=== PATIENT | female | born 1955 | race Caucasian/White ===

== ENCOUNTER → 2016-11-04 | Outpatient (CLI) | payer OTHER | LOC: RAD 15:13 | PROVIDERS: ATTEND Surgery | DX: L97.322 Non-pressure chronic ulcer of left ankle with fat layer exposed (principal) ==

== ENCOUNTER → 2017-03-15 | Outpatient (CLI) | payer OTHER ==
--- NOTE | 2017-03-16 07:41 | XCELERA REPORT ---
[address] [address] Lower Extremity Arterial Evaluation Name: SASHA JONES Age: 61 yrs Gender: Female : 1955 Patient Status: Outpatient Patient Location: Study Date: 03/15/2017 09:46 AM Procedure: A color flow and duplex scan of the lower extremity arteries was performed bilaterally with velocity and waveform anaylsis. Reason For Study: ULCER Ordering Physician: JUHI JIMENEZ Performed By: Zoila Casas Measurements and Calculations Right Left CAR WHACKER PSV 108.6 87.3 cm/sec Prox PFA PSV 65.9 -48.5 cm/sec Prox SFA PSV 100.2 86.4 cm/sec Mid SFA PSV -108.1 -99.7 cm/sec Dist SFA PSV -104.8 -69.5 cm/sec Prox Pop A PSV 56.6 48.8 cm/sec Dist RONY PSV 51.0 49.8 cm/sec Dist LINK TRAINER OPERATOR PSV 87.7 74.6 cm/sec Darshan Pedis PSV 24.9 54.6 cm/sec Right Side Arterial Evaluation Normal velocity and biphasic waveforms noted from the Common Femoral artery to the infrageniculate vessels. Somewhat diminished velocity in the Dorsalis Pedis. 0-19% stenosis at the Aorta Iliac inflow. Ankle Brachial index is 1.1. Left Side Arterial Evaluation Normal velocity and biphasic waveforms noted from the Common Femoral artery to the infrageniculate vessels. 0-19% stenosis at the Aorta Iliac inflow. Ankle Brachial index is 0.9. Interpretation Summary Mild hemodynamically significant lesions in the bilateral lower extremities, on duplex imaging, at rest. : JUHI JIMENEZ > Juhi Jimenez
--- NOTE | 2017-03-16 12:42 | XCELERA REPORT ---
[address] [address] Lower Extremity Venous Evaluation Name: SASHA JONES Age: 61 yrs Gender: Female : 1955 Patient Status: Outpatient Patient Location: Study Date: 03/15/2017 10:12 AM Reason For Study: ULCER Ordering Physician: JUHI JIMENEZ Performed By: Zoila Casas Right Sided Venous Evaluation Deep venous system evaluation shows patent veins with no obstruction or significant reflux identified. Sapheno Femoral junction: no reflux. Femoral vein reflux: no reflux. Greater Saphenous vein, Proximal thigh: reflux: no reflux. Greater Saphenous vein, Distal thigh: reflux: no reflux. Greater Saphenous vein, Proximal below knee: reflux: no reflux. Small Saphenous vein, : reflux: 3 second reflux. 5 mm. No significant Perforators identified. Left Sided Venous Evaluation Deep venous system evaluation shows patent veins with significant reflux identified. 1.3 second reflux in the Popliteal vein, 2.5 seconds reflux in the Femoral vein. There is mural scarring, non occlusive in the Femoral and Popliteal area, significant for old or prior DVT. Sapheno Femoral junction: no reflux. Greater Saphenous vein, Proximal thigh: reflux: no reflux. Greater Saphenous vein, mid thigh: reflux:no reflux. Greater Saphenous vein, Distal thigh: reflux:no reflux. Greater Saphenous vein, Proximal below knee: reflux: none Greater Saphenous vein, Mid below knee: reflux: none. Greater Saphenous vein, Distal below knee: reflux: no reflux. Small Saphenous vein reflux: 3 seconds, 5.7 mm mm diameter. No significant Perforators identified. Interpretation Summary No acute DVT. There is old mural scarring in the left Femoral vein with deep reflux. Bilateral Small Saphenous reflux, as noted. : JUHI JIMENEZ > Juhi Jimenez
== END ==
LOC: SP 09:36
PROVIDERS: ATTEND Surgery
DX: L97.322 Non-pressure chronic ulcer of left ankle with fat layer exposed (principal)
CPT/HCPCS: 93925; 93970

== ENCOUNTER → 2017-08-04 | Outpatient (CLI) | payer OTHER ==
--- NOTE | 2017-08-04 12:04 | RADIOLOGY REPORT (SQ) ---
EXAM DESCRIPTION: VENOUS UNILATERAL LOWER COMPLETED DATE/TIME: 08/04/2017 11:34 am REASON FOR STUDY: LLE PAIN M79.606 PAIN IN LEG, UNSPECIFIED COMPARISON: None. TECHNIQUE: Dynamic and static dutton scale and color images acquired of the left leg venous system. Se lected spectral images acquired with additional compression and augmentation maneuvers. The contralat eral common femoral vein and saphenofemoral junction were also imaged. Images stored on PACS. LIMITATIONS: None. FINDINGS: There is chronic nonocclusive thrombus in common femoral vein through the distal superfici al femoral vein. No acute thrombus is seen. The veins in the calf are unremarkable. There is no [place] perficial venous thrombosis. IMPRESSION: Chronic nonocclusive DVT from the common femoral through the distal superficial femoral vein on the left. TECHNICAL DOCUMENTATION: JOB ID: [id number] [employer]- All Rights Reserved
== END ==
LOC: SP 10:33
PROVIDERS: ATTEND Surgery
DX: M79.606 Pain in leg, unspecified (principal)
CPT/HCPCS: 93971

== ENCOUNTER → 2019-01-03 | Outpatient (CLI) | payer MEDICARE, OTHER ==
[2019-01-03 14:08] LABS: ABSOLUTE BASOPHILS # (AUTO) 0.1 10^3/uL (0.0-0.2); ABSOLUTE EOSINOPHILS # (AUTO) 0.2 10^3/uL (0.0-0.6); ABSOLUTE LYMPHOCYTES (AUTO) 2.3 10^3/uL (0.5-4.7); ABSOLUTE MONOCYTES (AUTO) 0.6 10^3/uL (0.1-1.4); ABSOLUTE NEUT (AUTO) 6.1 10^3/uL (1.7-8.2); BASOPHILS % (AUTO) 0.7 % (0-2); EOSINOPHILS % (AUTO) 1.6 % (0-6); HEMATOCRIT 36.7 % (36.0-47.0); HEMOGLOBIN 12.5 g/dL (12.0-15.5); LYMPHOCYTES % (AUTO) 25.4 % (13-45); MEAN CORPUSCULAR HEMOGLOBIN 29.2 pg (27.0-33.4); MEAN CORPUSCULAR HGB CONC 34.2 g/dL (32.0-36.0); MEAN CORPUSCULAR VOLUME 86 fl (80-97); PLATELET COUNT 318 10^3/uL (150-450); RED BLOOD COUNT 4.29 10^6/uL (3.72-5.28); RED CELL DISTRIBUTION WIDTH 14.1 % (11.5-14.0); SEGMENTED NEUTROPHILS % (AUTO) 66.3 % (42-78); TOTAL CELLS COUNTED % (AUTO) 100 %; WHITE BLOOD COUNT 9.2 10^3/uL (4.0-10.5)
[2019-01-03 14:24] LABS: ALANINE AMINOTRANSFERASE 19 U/L (9-52); ALBUMIN 4.5 g/dL (3.5-5.0); ALKALINE PHOSPHATASE 88 U/L (38-126); ANION GAP 9 (5-19); ASPARTATE AMINO TRANSFERASE 15 U/L (14-36); BILIRUBIN,DIRECT 0.3 mg/dL (0.0-0.4); BILIRUBIN,TOTAL 0.7 mg/dL (0.2-1.3); BLOOD UREA NITROGEN 9 mg/dL (7-20); C-REACTIVE PROTEIN 11.5 mg/L (<10.0); CALCIUM 10.1 mg/dL (8.4-10.2); CARBON DIOXIDE 26 mmol/L (22-30); CHLORIDE 105 mmol/L (98-107); GLUCOSE 133 mg/dL (75-110); SODIUM 140.3 mmol/L (137-145); TOTAL PROTEIN 7.1 g/dL (6.3-8.2)
[2019-01-03 14:35] LABS: ERYTHROCYTE SEDIMENTATION RATE 25 mm/hr (0-30)
--- NOTE | 2019-01-03 15:52 | RADIOLOGY REPORT (SQ) ---
EXAM DESCRIPTION: ANKLE LEFT COMPLETE COMPLETED DATE/TIME: 01/03/2019 2:11 pm REASON FOR STUDY: NON PRESSURE CHRONIC ULCER OF LT ANKLE W/FAT LAYER EXPOSED (L97.322) COMPARISON: 2016. NUMBER OF VIEWS: Three views left ankle. LIMITATIONS: None. FINDINGS: Osteopenic. No fracture or bone lesion. Chronic calcaneal bone spur. OTHER: No other significant finding. IMPRESSION: No acute or suspicious radiographic abnormality. Findings as above. TECHNICAL DOCUMENTATION: JOB ID: [id number] Reading location - IP/workstation name: [email or web address]
--- NOTE | 2019-01-04 09:32 | XCELERA REPORT ---
[address] [address] Lower Extremity Arterial Evaluation Name: ROBERT SASHA Jaspal Age: 63 yrs Gender: Female : 1955 Patient Status: Outpatient Patient Location: Study Date: 01/03/2019 02:31 PM Procedure: A color flow and duplex scan of the lower extremity arteries was performed bilaterally with velocity and waveform anaylsis. Reason For Study: ULCER Ordering Physician: JUHI JIMENEZ Performed By: Belle Monroy Measurements and Calculations Right Left PROFESSOR OF ASTRONOMY PSV 132.8 69.5 cm/sec Prox PFA PSV -83.3 -40.7 cm/sec Prox SFA PSV -107.5 85.1 cm/sec Mid SFA PSV -115.9 76.8 cm/sec Dist SFA PSV -134.1 -103.1cm/sec Dist Pop A PSV 69.4 51.9 cm/sec Dist RONY PSV 70.2 47.8 cm/sec Dist STREET LIGHT CLEANER PSV 129.5 65.4 cm/sec Darshan Pedis PSV 57.3 -38.7 cm/sec Right Side Arterial Evaluation Normal velocity and triphasic waveforms noted from the Common Femoral artery to the Posterior Tibial . Biphasic with normal velocity, mild spectral broadening, in the Anterior Tibial and Dorsalis Pedis arteries. Ankle Brachial index 1.21. Left Side Arterial Evaluation Normal velocity and triphasic waveforms noted from the Common Femoral artery to the Anterior Tibial . Biphasic with low normal velocity in the Deep Femoral , Posterior Tibial and Dorsalis Pedis arteries. Ankle Brachial index 0.98. Interpretation Summary Mild hemodynamically significant lesions in the bilateral lower extremities, on duplex imaging, at rest. Isolated atherosclerotic effects, bilaterally. OTONIEL's are in normal range suggesting, minimal if any significant arterial disease. : JUHI JIMENEZ > Juhi Jimenez
== END ==
LOC: SP 13:22
PROVIDERS: ATTEND Surgery
DX: E11.621 Type 2 diabetes mellitus with foot ulcer (principal); L97.322 Non-pressure chronic ulcer of left ankle with fat layer exposed
CPT/HCPCS: 36415; 80053; 83036; 85025; 85652; 86140; 93925

== ENCOUNTER → 2019-12-12 | Outpatient (CLI) | payer MEDICARE, OTHER ==
[2019-12-12 14:51] LABS: ABSOLUTE BASOPHILS # (AUTO) 0.1 10^3/uL (0.0-0.2); ABSOLUTE EOSINOPHILS # (AUTO) 0.1 10^3/uL (0.0-0.6); ABSOLUTE LYMPHOCYTES (AUTO) 1.9 10^3/uL (0.5-4.7); ABSOLUTE MONOCYTES (AUTO) 0.4 10^3/uL (0.1-1.4); ABSOLUTE NEUT (AUTO) 6.2 10^3/uL (1.7-8.2); BASOPHILS % (AUTO) 0.9 % (0-2); HEMATOCRIT 37.7 % (36.0-47.0); HEMOGLOBIN 12.9 g/dL (12.0-15.5); LYMPHOCYTES % (AUTO) 22.2 % (13-45); MEAN CORPUSCULAR HEMOGLOBIN 30.3 pg (27.0-33.4); MEAN CORPUSCULAR HGB CONC 34.2 g/dL (32.0-36.0); MEAN CORPUSCULAR VOLUME 89 fl (80-97); MONOCYTES % (AUTO) 5.1 % (3-13); PLATELET COUNT 299 10^3/uL (150-450); RED BLOOD COUNT 4.24 10^6/uL (3.72-5.28); RED CELL DISTRIBUTION WIDTH 13.6 % (11.5-14.0); SEGMENTED NEUTROPHILS % (AUTO) 70.8 % (42-78); TOTAL CELLS COUNTED % (AUTO) 100 %; WHITE BLOOD COUNT 8.8 10^3/uL (4.0-10.5)
--- NOTE | 2019-12-12 15:12 | RADIOLOGY REPORT (SQ) ---
EXAM DESCRIPTION: ANKLE LEFT COMPLETE COMPLETED DATE/TIME: 12/12/2019 2:38 pm REASON FOR STUDY: NON-PRESSURE CHRONIC ULCER OF LEFT ANKLE W FAT LAYER EXPOSED (L97.322) L97.322 NO N-PRESSURE CHRONIC ULCER OF LEFT ANKLE W FAT LAYER E11.621 TYPE 2 DIABETES MELLITUS WITH FOOT ULCER COMPARISON: None. NUMBER OF VIEWS: Three views. TECHNIQUE: AP, lateral, and oblique radiographic images acquired of the left ankle. LIMITATIONS: None. FINDINGS: MINERALIZATION: Normal. BONES: No acute fracture or dislocation. No worrisome bone lesions. JOINTS: No effusions. SOFT TISSUES: No soft tissue swelling. No foreign body. OTHER: No other significant finding. IMPRESSION: NEGATIVE STUDY OF THE LEFT ANKLE. NO RADIOGRAPHIC EVIDENCE OF ACUTE INJURY. TECHNICAL DOCUMENTATION: JOB ID: [id number] 2010 [employer]- All Rights Reserved Reading location - IP/workstation name: [email or web address]
[2019-12-12 15:15] LABS: ALBUMIN 4.5 g/dL (3.5-5.0); ALKALINE PHOSPHATASE 77 U/L (38-126); ANION GAP 11 (5-19); ASPARTATE AMINO TRANSFERASE 40 U/L (14-36); BILIRUBIN,DIRECT 0.4 mg/dL (0.0-0.4); BILIRUBIN,TOTAL 0.7 mg/dL (0.2-1.3); BLOOD UREA NITROGEN 9 mg/dL (7-20); CALCIUM 9.7 mg/dL (8.4-10.2); CARBON DIOXIDE 25 mmol/L (22-30); CHLORIDE 106 mmol/L (98-107); GLUCOSE 102 mg/dL (75-110); POTASSIUM 4.1 mmol/L (3.6-5.0); TOTAL PROTEIN 7.6 g/dL (6.3-8.2)
[2019-12-12 15:19] LABS: C-REACTIVE PROTEIN < 5.0 mg/L (<10.0)
[2019-12-12 15:52] LABS: ERYTHROCYTE SEDIMENTATION RATE 13 mm/hr (0-30)
--- NOTE | 2019-12-13 11:48 | XCELERA REPORT ---
[address] [address] Lower Extremity Arterial Evaluation Name: SASHA JONES I Age: 63 yrs Gender: Female : 1955 Patient Status: Outpatient Patient Location: Study Date: 12/12/2019 01:17 PM Procedure: A color flow and duplex scan of the lower extremity arteries was performed bilaterally with velocity and waveform anaylsis. Ankle brachial indicies performed. Reason For Study: LT ANKLE ULCER Ordering Physician: ANABELLE COY Performed By: Sheldon Gorman Measurements and Calculations Right Left DIRECTOR PROFESSIONAL SERVICES PSV 132.0 61.5 cm/sec Prox PFA PSV -130.4 40.0 cm/sec Prox SFA PSV 124.3 89.5 cm/sec Mid SFA PSV -146.1 -101.7cm/sec Dist SFA PSV -114.7 -53.4 cm/sec Prox Pop A PSV 92.6 60.8 cm/sec Dist Pop A PSV -92.1 -63.2 cm/sec Dist RONY PSV 63.6 46.5 cm/sec Dist SHELL PRESS OPERATOR PSV 119.4 63.5 cm/sec Darshan Pedis PSV 50.7 -24.8 cm/sec Right Side Arterial Evaluation Normal velocity and triphasic waveforms noted from the Common Femoral artery to the infrageniculate vessels . Biphasic with low normal velocity in the Dorsalis Pedis . Ankle Brachial index 1.06. Left Side Arterial Evaluation Low normal velocity and biphasic waveforms, moderate spectral broadening, noted from the Common Femoral artery to the infrageniculate vessels . Ankle Brachial index 0.81. Interpretation Summary Mild hemodynamically significant lesions in the right lower extremity only, on duplex imaging, at rest. Moderate hemodynamically significant lesions in the left lower extremity only, on duplex imaging, at rest. Duplex shows no focal stenosis. Vessels balderas look free of atherosclerotic change. On the right disease noted in the dorsalis Pedis. On the left significant arterial disease, likely in the Aorta Iliac inflow. OTONIEL's are normal on the right, abnormal on the left. Suggesting absence of significant obstructive disease on the right, moderately severer arterial obstructive disease on the left. This is concordant with the duplex findings. : ANABELLE COY > Mello Jimenez
== END ==
LOC: SP 12:29
PROVIDERS: ATTEND Nurse Practitioner Family
DX: L97.322 Non-pressure chronic ulcer of left ankle with fat layer exposed (principal); E11.621 Type 2 diabetes mellitus with foot ulcer
CPT/HCPCS: 36415; 80053; 83036; 85025; 85652; 86140; 93922; 93925

== ENCOUNTER → 2020-05-13 | Outpatient (CLI) | payer MEDICARE, OTHER ==
[2020-05-13 10:35] LABS: ABSOLUTE EOSINOPHILS # (AUTO) 0.2 10^3/uL (0.0-0.6); ABSOLUTE LYMPHOCYTES (AUTO) 2.8 10^3/uL (0.5-4.7); ABSOLUTE MONOCYTES (AUTO) 0.8 10^3/uL (0.1-1.4); ABSOLUTE NEUT (AUTO) 6.6 10^3/uL (1.7-8.2); BASOPHILS % (AUTO) 0.4 % (0-2); EOSINOPHILS % (AUTO) 1.5 % (0-6); HEMATOCRIT 37.4 % (36.0-47.0); HEMOGLOBIN 12.5 g/dL (12.0-15.5); LYMPHOCYTES % (AUTO) 27.1 % (13-45); MEAN CORPUSCULAR HEMOGLOBIN 31.6 pg (27.0-33.4); MEAN CORPUSCULAR HGB CONC 33.5 g/dL (32.0-36.0); MEAN CORPUSCULAR VOLUME 95 fl (80-97); MONOCYTES % (AUTO) 7.4 % (3-13); PLATELET COUNT 319 10^3/uL (150-450); RED BLOOD COUNT 3.96 10^6/uL (3.72-5.28); RED CELL DISTRIBUTION WIDTH 13.9 % (11.5-14.0); SEGMENTED NEUTROPHILS % (AUTO) 63.6 % (42-78); TOTAL CELLS COUNTED % (AUTO) 100 %; WHITE BLOOD COUNT 10.3 10^3/uL (4.0-10.5)
[2020-05-13 10:59] LABS: ALBUMIN 4.7 g/dL (3.5-5.0); ALKALINE PHOSPHATASE 54 U/L (38-126); ANION GAP 7 (5-19); ASPARTATE AMINO TRANSFERASE 89 U/L (14-36); BILIRUBIN,DIRECT 0.1 mg/dL (0.0-0.4); BILIRUBIN,TOTAL 0.8 mg/dL (0.2-1.3); BLOOD UREA NITROGEN 18 mg/dL (7-20); CALCIUM 10.1 mg/dL (8.4-10.2); CARBON DIOXIDE 28 mmol/L (22-30); CHLORIDE 103 mmol/L (98-107); GLUCOSE 97 mg/dL (75-110); POTASSIUM 5.1 mmol/L (3.6-5.0); TOTAL PROTEIN 7.7 g/dL (6.3-8.2)
[2020-05-13 11:03] LABS: C-REACTIVE PROTEIN < 5.0 mg/L (<10.0)
--- NOTE | 2020-05-13 11:11 | RADIOLOGY REPORT (SQ) ---
EXAM DESCRIPTION: ANKLE LEFT COMPLETE IMAGES COMPLETED DATE/TIME: 05/13/2020 10:27 am REASON FOR STUDY: NON-PRESSURE CHRONIC ULCER OF LEFT ANKLE W FAT LAYER EXPOSED E11.621 TYPE 2 DIABE ERON MELLITUS WITH FOOT ULCER L97.322 NON-PRESSURE CHRONIC ULCER OF LEFT ANKLE W FAT LAYER COMPARISON: None. NUMBER OF VIEWS: Three views. TECHNIQUE: AP, lateral, and oblique without weight bearing radiographic images acquired of the left ankle. LIMITATIONS: None. FINDINGS: MINERALIZATION: Normal. BONES: No acute fracture or dislocation. No worrisome bone lesions. Plantar calcaneal spur. JOINTS: No effusions. SOFT TISSUES: No soft tissue swelling. No foreign body. OTHER: No other significant finding. IMPRESSION: NO SIGNIFICANT FINDING IN THE LEFT ANKLE. TECHNICAL DOCUMENTATION: JOB ID: [id number] 2010 [employer]- All Rights Reserved Reading location - IP/workstation name: [email or web address]
[2020-05-13 11:23] LABS: ERYTHROCYTE SEDIMENTATION RATE 8 mm/hr (0-30)
== END ==
LOC: WC 09:44
PROVIDERS: ATTEND Nurse Practitioner Family
DX: E11.621 Type 2 diabetes mellitus with foot ulcer (principal); L97.322 Non-pressure chronic ulcer of left ankle with fat layer exposed
CPT/HCPCS: 36415; 80053; 83036; 85025; 85652; 86140